=== PATIENT | female | born 1955 | race Caucasian/White ===

== ENCOUNTER 2023-04-23 13:01 | Outpatient (AMB) | payer OTHER, MEDICAID, SELFPAY ==
--- NOTE | 2023-04-23 13:04 | A.OFFVIS_ITS ---
Intake Vital Signs 04/23/23 13:09 Height 5 ft 0.25 in Weight 220 lb 8 oz BMI 42.7 BP 114/68 Blood Pressure Location Rt brachial Position Sitting Respiration 16 Pulse 65 Pulse Source Pulse Oximeter Pulse Oximetry (%) 96 Oxygen Delivery Method Room Air Intake Visit Reasons: E-HEALTH INFORMATION MANAGEMENT DIRECTOR: Tremors-CONF Intake Note: Pt presents for new pt evaluation for tremors. Screwhead Stoner And Polisher Required: No Allergies No Known Allergies Allergy (Verified 04/23/23 13:05) Medication List - Last Reconciled 04/23/23 by Faina Avelar MD acetaminophen 500 mg PO QID PRN atorvastatin 20 mg PO DAILY diclofenac sodium 1% (Arthritis Pain (diclofenac)) 2 grams topical QID ibuprofen 600 mg PO Q6H PRN propranolol 60 mg PO BID HPI HPI Comments History of Present Illness Details 67y/o right handed handed female comes f or evaluation of tremors. She started noticing tremors in her hands more than 5 years ago and for past 1 year she also has cramping in her hands and fingers.she has difficulty opening the water bottle, dressing , buttoning the shirt etc. The tremors are worse with action and position. she also has numbness and tingling in bilateral hands episodic in nature. she denies neck pain but has shoulder pain. 2 of her brothers have some finger cramp ing but no tremors. PFSH Medical History Cervicalgia Numbness and tingling in both hands Coarse tremors Obesity Hyperlipidemia Knee pain Gallstones Arthritis Surgical History H/O varicose vein stripping Hx of total knee replacement Social History Household Members: Other Housing: Apartment Are you a primary foster care worker to a significant other at home: Yes Alcohol intake: never Patient Tobacco Use Status: Never used Tobacco Use of substances other than those prescribed or required for medical reasons: No Physical Exam Vital Signs: Last Vital Signs Pulse 65 04/23/23 13:09 Resp 16 04/23/23 13:09 BP 114/68 04/23/23 13:09 Pulse Ox 96 04/23/23 13:09 Oxygen Delivery Method Room Air 04/23/23 13:09 BMI result Body Mass Index 42.7 Const General: cooperative, healthy appearing and comfortable Nutritional Appearance: obese Orientation/consciousness: patient oriented x3 Eyes Pupils: Equal, round and reactive pupils present Neuro Other: 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 of willis hand line camera operator Mild postural and action tremors tone normal General: patient oriented x3, gait normal, tone normal and moves all extremities Cranial nerves: Yes Equal, round and reactive pupils present, Yes Bilaterally intact EOM present, Yes Nystagmus not present, Yes Normal facial strength present and Yes Midline tongue present Cognition (Neuro): normal cognition Gait exam (Neuro): Antalgic gait present Motor exam (neuro): 5/5 motor strength present throughout and Normal motor muscle tone present throughout Deep tendon reflexes (DTR's): Right triceps reflex intensity grade: 1+, Left triceps reflex intensity grade: 1+, Rt Biceps (C5, C6): 1+, Left biceps reflex intensity grade: 1+, Right brachioradialis reflex intensity grade: 1+, Left brachioradialis reflex intensity grade: 1+, Right patellar reflex intensity grade: 1+ and Left patellar reflex intensity grade: 1+ Coordination: geznhg-[id number] test normal Psych Appearance: grossly normal Assessment & Plan Assessment & Plan (1) Coarse tremors: Comment: exaggerated physiological tremors vs essential tremors Code(s): G25.2 - Other specified forms of tremor (2) Numbness and tingling in both hands: Comment: ? carpal tunnel ? cervical radiculopathy Code(s): R20.0 - Anesthesia of skin; R20.2 - Paresthesia of skin (3) Cervicalgia: Code(s): M54.2 - Cervicalgia Plan C spine X ray - to evaluate for DJD PT - neck myofascial release OT - hand strengthening EMG NCS - UE to evaluate for carpal tunnel will hold off on medications for now Orders: Orders OT Evaluation and Treatment Today G25.2 - Other specified forms of tremor PT Evaluation and Treatment Today M54.2 - Cervicalgia XR cervical spine 3V Today M54.2 - Cervicalgia, R20.0 - Anesthesia of skin, R20.2 - Paresthesia of skin NE electromyogram (EMG) Today R20.0 - Anesthesia of skin, R20.2 - Paresthesia of skin NE nerve conduction velocity Today R20.0 - Anesthesia of skin, R20.2 - Paresthesia of skin Coding Level of Care Code New Pt Level 4 (61611) Diagnoses Coarse tremors G25.2 Numbness and tingling in both hands R20.0; R20.2 Cervicalgia M54.2
[2023-04-23 13:09] VITALS: BP 114/68; PULSE 65; RESP 16; O2SAT 96; BMI 42.7
== END 2023-04-23 13:49 | disposition home or self-care (01) ==
PROVIDERS: PCP Nurse Practitioner Family; Visit Provider Psychiatry & Neurology Neurology
DX: G25.2 Other specified forms of tremor (principal); R20.0 Anesthesia of skin; R20.2 Paresthesia of skin; M54.2 Cervicalgia
CPT/HCPCS: 99204

== ENCOUNTER → 2023-04-23 13:01 | Outpatient (BNVA) | payer OTHER, SELFPAY | PROVIDERS: PCP Nurse Practitioner Family; Visit Provider Psychiatry & Neurology Neurology ==

== ENCOUNTER 2024-05-29 13:00 | Outpatient (AMB) | payer MEDICAID, SELFPAY ==
--- NOTE | 2024-05-29 13:01 | MHC.OFFVIS ---
Vital Signs 05/29/24 13:10 Height 5 ft 1 in Weight 230 lb BMI 43.5 Pulse 58 Pulse Source Pulse Oximeter Pulse Oximetry (%) 99 Oxygen Delivery Method Room Air Intake Visit Reasons: Follow Up-# Not Working Intake Note: Patient presents for follow up per OF central scheduling unable to reach patient to book procedures ordered by provider Retail Merchandiser Technician Required: Yes Retail Merchandiser Technician Services: Retail Merchandiser Technician Present Retail Merchandiser Technician Name: Muna [id number] Information Interpreted: non-clinical & clinical Allergies No Known Allergies Allergy (Verified 05/29/24 13:11) Medication List - Last Reconciled 05/29/24 by Faina Avelar MD acetaminophen 500 mg PO QID PRN atorvastatin 20 mg PO DAILY diclofenac sodium 1% (Arthritis Pain (diclofenac)) 2 grams topical QID ibuprofen 600 mg PO Q6H PRN HPI Comments Details: 68y/o right handed handed female comes for follow up of tremors.No changes since last visit- she did not have X ray and no showed her EMG appointment. History from last visit-She started noticing tremors in her hands more than 5 years ago and for past 1 year she also has cramping in her hands and fingers.she has difficulty opening the water bottle, dressing , buttoning the shirt etc. The tremors are worse with action and position. she also has numbness and tingling in bilateral hands episodic in nature. she denies neck pain but has shoulder pain. 2 of her brothers have some finger cramping but no tremors. [facility] Medical History Cervicalgia Numbness and tingling in both hands Coarse tremors Obesity Hyperlipidemia Knee pain Gallstones Arthritis Surgical History H/O varicose vein stripping Hx of total knee replacement Social History Household Members: Other Housing: Apartment Are you a primary health and social care teacher to a significant other at home: Yes Alcohol intake: never Patient Tobacco Use Status: Never used Tobacco Physical Exam Const General: cooperative, healthy appearing and comfortable Nutritional Appearance: obese Orientation/consciousness: patient oriented x3 Eyes Pupils: Equal, round and reactive pupils present Neuro Other: 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 of 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 Mild postural and action tremors tone normal General: patient oriented x3, gait normal, tone normal and moves all extremities Cranial nerves: Yes Equal, round and reactive pupils present, Yes Bilaterally intact EOM present, Yes Nystagmus not present, Yes Normal facial strength present and Yes Midline tongue present Cognition (Neuro): normal cognition Gait exam (Neuro): Antalgic gait present Motor exam (neuro): 5/5 motor strength present throughout and Normal motor muscle tone present throughout Coordination: [id number]-tf-[id number] test normal Psych Appearance: grossly normal Assessment & Plan Assessment & Plan (1) Coarse tremors: Comment: exaggerated physiological tremors vs essential tremors Code(s): G25.2 - Other specified forms of tremor Category: Medical (2) Numbness and tingling in both hands: Comment: ? carpal tunnel ? cervical radiculopathy Code(s): R20.0 - Anesthesia of skin; R20.2 - Paresthesia of skin Category: Medical (3) Cervicalgia: Code(s): M54.2 - Cervicalgia Category: Medical Plan C spine X ray - to evaluate for DJD EMG NCS - UE to evaluate for carpal tunnel will hold off on medications for now A certified medical geneticist helped with todays vist Orders: Orders NE electromyogram (EMG) Today R20.0 - Anesthesia of skin, R20.2 - Paresthesia of skin XR cervical spine 2V Today M54.2 - Cervicalgia NE nerve conduction velocity Today R20.0 - Anesthesia of skin, R20.2 - Paresthesia of skin Coding Level of Care Code Est Pt Level 4 (72064) Diagnoses Coarse tremors G25.2 Numbness and tingling in both hands R20.0; R20.2 Cervicalgia M54.2
[2024-05-29 13:10] VITALS: PULSE 58; O2SAT 99; BMI 43.5
--- OUTSIDE RECORDS SUMMARY | 2024-05-29 15:19 | XMS_ITS | Clinical Summary ---
Author Organization [facility] Address [address] [place] [address] Care Team Providers Care Plate Stacker Name Role Phone Nga Torre CROSS TIE MAKER-Erica Primary Care Provider [phone] Source Comments PLEASE NOTE, if this patient is a minor, it may be UNLAWFUL to discuss sensitive information that is contained in these records (such as FAMILY PLANNING, MENTAL HEALTH or SUBSTANCE ABUSE) with the minor patient's parent or other person without the patient's specific authorization.[facility] Allergies No known active allergies Medications primidone (MYSOLINE) 50 mg tabletIndications: Essential tremor Take 0.5 Tablets by mouth nightly at bedtime 90 Tablet 4 Active atorvastatin (LIPITOR) 20 mg tabletIndications: Mixed hyperlipidemia Take 1 Tablet by mouth once daily 90 Tablet 1 5 Active diclofenac sodium (VOLTAREN) 1 % gelIndications:Art hritis,Chronic midline thoracic back pain,Chronic pain of left knee Apply topically 2 (two) times daily 100 g 1 5 Active ibuprofen 400 mg tabletIndications: Chronic midline thoracic back pain,Chronic pain of left knee Take 1 Tablet by mouth 3 (three) times daily as needed for pain 90 Tablet 5 Active Active Problems Problem Noted Date Diagnosed Date Colon cancer screening declined 10/18/2022 Essential tremor 10/18/2022 Mixed hyperlipidemia 03/08/2022 Primary osteoarthritis of both knees 07/25/2021 Calculus of gallbladder with out cholecystitis without obstruction 07/15/2021 Chronic pain of both knees 07/15/2021 Arthritis 07/15/2021 Class 3 severe obesity due t o excess calories with serious comorbidity and body mass index (BMI) of 45.0 to 49.9 in adult ([facility]) 07/15/2021 Encounters Date Type Department Care Team Description 04/03/2024 5:20 PM EST Telemedicine Visit [address] [id number] Nga Torre FNP-C Vasylyshyn, Oksana Primary osteoarthritis of both knees (Primary Dx); Essential tremor; Mixed hyperlipidemia; Arthritis; Chronic midline thoracic back pain; Chronic pain of left knee from Last 3 Months Immunizations Immunization Administration Dates Next Due AstraZeneca COVID-19 Vaccine 01/09/2021,08/05/19 21 PNEUMOCOCCAL CONJUGATE PCV 20 (Prevnar) 08/27/19 24 TDAP 08/27/2023 Family History Medical History Relation Name Comments Heart Problems Father Heart Problems Mother Relation Name Status Comments Father Mother Social History Tobacco Use Types Packs/Day Years Used Date Smoking Tobacco: Never Smokeless Tobacco: Never Alcohol Use Standard Drinks/Week Comments Not Currently 0 (1 standard drink = 0.6 oz pur e alcohol) Social Connections Answer Date Recorded Connectedness 0 10/19/2023 Financial Resource Strain Answer Date R ecorded Financial Resource Strain 0 2021 Stress Answer Date Recorded Stress 0 07/15/2021 Physical Activity Answer Date Recorded Physical Activity 0 07/15/2021 Food Insecurity Answer Date Recorded Food 0 11/01/2023 Transportation Needs Answer Date Record ed Transportation 0 07/15/2021 Housing Stability Answer Date Recorded Housing 0 07/15/2021 Safety and Environment Answer Date Nithin rded Safety 0 07/15/2021 Utilities Answer Date Recorded Utilities 0 07/15/2021 Employment Answer Date Recorded Stress 0 10/19/2023 Comments No Sex and Gender Information Value Date Recorded Sex Assigned at Female 07/15/2021 7:54 AM PDT Legal Sex Female 6:40 AM PDT Gender Identity Female 07/15/2021 7:54 AM PDT Sexual Orientation Straight 07/15/2021 7: 54 AM PDT Occupation Industry Job Start Date Job End Date 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 [employer] Not on file No t on file Not on file Last Filed Vital Signs Vital Sign Reading Time Taken Comments Blood Pressure 134/82 10/30/2023 9:41 AM EDT Pulse 60 10/30/2023 9:41 AM EDT Temperature 36.9 ??C (98.4 ??F) 10/30/2023 9:41 AM ED T Respiratory Rate 19 10/30/2023 9:41 AM EDT Oxygen Saturation 97% 10/30/2023 9:41 AM EDT Inhaled Oxygen Concentration - - Weight 99.8 kg (220 lb) 10/30/2023 9:41 AM EDT Height 154.9 cm (5' 1 ) 10/30/2023 9:41 AM EDT Body Mass Index 41.57 10/30/2023 9:41 AM EDT Plan of Treatment Health Maintenance Due Date Last Done Comments Breast Cancer Screening (Mammogram) 1994 CT Colonography 08/04/1999 Colonoscopy 08/04/1999 FIT/gFOBT 08/04/1999 Fecal DNA 08/04/1999 Flexible Sigmoidoscopy 08/04/1999 Bone Density Screening 08/04/2019 [id number] ( season) 2023 08/27/2023, 01/09/2021, 08/04/2020 Tobacco Screening 07/12/2024 07/13/2023, , 07/15/2021 Annual Preventive Care Visit 10/29/2024, 10/18/2022, 10/14/2021, Additional history exists Falls Prevention 10/29/2024 10/30/2023, , 03/08/2022 Hypertension Screening (#1) 10/29/2024 Lipid Screening 10/29/2024 10/30/2023, 02/0 02/2022, 10/18/2021, Additional history exists Diabetes Screening 10/29/2026 10/30/2023, 0 10/30/2023, 03/08/2022, Additional history exists Hepatitis C Screening Completed 07/15/2021 Imm-DTaP/Tdap/Td Discontinued 08/27/2023 Imm-Pneumococcal 65+ Discontinued 08/27/2023 Alcohol and Drug Screen Completed 04/03/19, 10/30/2023, 03/08/2022, Additional history exists Depression Annual Screen Completed 04/03/2024 Colorectal Cancer Screening Discontinued Imm-Influenza Discontinued Imm-Zoster, Recombinant Discontinued Procedures Procedure Name Priority Date/Time Associated Diagnosis Comments HEMOGLOBIN GLYCOSYLATED A1C Routine 10/30/2023 10:25 AM EDT Routine general medical examination at a health care facility LIPID PANEL Routine 10/30/2023 10:25 AM EDT Routine general medical examination at a health care facility HEPATITIS C AB W/RFLX HCV RNA, QT, RT PCR Routine 07/15/2021 2:27 PM EDT Venereal disease screening from Last 3 Months or Most Recently Relevant to Health Maintenance Results * HEMOGLOBIN GLYCOSYLATED A1C (10/30/2023 10:25 AM EDT) HEMOGLOBIN A1C 5.6 <5.7 % of total Hgb [facility] Comment: For the purpose of screening for the presence of diabetes: <5.7% ? Consistent with the absence of diabetes 5.7-6.4% ?Consistent with increased risk for diabetes ?(prediabetes) > or =6.5% ??Consistent with diabetes This assay result is consistent with a decreased risk of diabetes. Currently, no consensus exists regarding use of hemoglobin A1c for diagnosis of diabetes in children. According to [place] Diabetes Association (ADA) guidelines, hemoglobin A1c <7.0% represents optimal control in non- diabetic patients. Different metrics may apply to specific patient populations. Standards of Medical Care in Diabetes(ADA). ?? Blood Blood / Unknown 10/30/2023 1 0:25 AM EDT 10/30/2023 10:26 AM EDT Narrative [facility] - 10/31/2023 3:03 PM EDT FASTING:NO us Nga Torre CROSS TIE MAKER-C LAB - BLOOD DRAW Edited R esult - Final [facility] [address] [place] [address], [facility] [address] [place] [address] * (ABNORMAL) LIPID PANEL (10/30/2023 10:25 AM EDT) CHOLESTEROL, TOTAL 201(H) <200 mg/dL [facility] HDL CHOLESTEROL 35(L) > OR = 50 mg/dL [facility] TRIGLYCERIDES 133 <150 mg/dL [facility] LDL-CHOLESTEROL 140(H) 99 mg/dL (calc) [facility] Comment: Reference range: <100 Desirable range <100 mg/dL for primary prevention; ?? <70 mg/dL for patients with CHD or diabetic patients with > or = 2 CHD risk factors. LDL-C is now calculated using the Valery calculation, which is a validated novel method providing better accuracy than the Friedewald equation in the estimation of LDL-C. [place] AGUIRRE et al. SHIRLEY. 2013;310(19): 1757-7542 (http://education.Espion Limited/faq/NTR805) CHOL/HDLC RATIO 5.7(H) <5.0 (calc) [facility] NON-HDL CHOLESTEROL 166(H) <130 mg/dL (calc) [facility] Comment: For patients with diabetes plus 1 major ASCVD risk factor, treating to a non-HDL-C goal of <100 mg/dL (LDL-C of <70 mg/dL) is considered a therapeutic option. Blood Blood / Unknown 10/30/2023 1 0:25 AM EDT 10/30/2023 10:26 AM EDT Narrative [facility] - 10/31/2023 3:03 PM EDT FASTING:NO Nga Torre CROSS TIE MAKER-C LAB - BLOOD DRAW Final Re sult [facility] [address] [place] [address], [facility] [address] [address] * HEPATITIS C AB W/RFLX HCV RNA, QT, RT PCR (07/15/2021 2:27 PM EDT) HEPATITIS C ANTIBODY NON-REACT BELGICA NON-REACT BELGICA [facility] SIGNAL TO CUT-OFF 0.03 <1.00 [facility] Comment: HCV antibody was non-reactive. There is no laboratory evidence of HCV infection. In most cases, no further action is required. However, if recent HCV exposure is suspected, a test for HCV RNA (test code 28951) is suggested. For additional information please refer to http://education.[employer]/faq/WRO58i4 (This link is being provided for informational/ educational purposes only.) Blood Blood / Unknown 07/15/2021 2 :27 PM EDT 07/15/2021 2:27 PM EDT Amanda Hammonds CROSS TIE MAKER-C LAB - BLOOD DRAW Edited Result - Final [facility] [place] [facility] [address] [address], [facility] [address] [address] from Last 3 Months or Most Recently Relevant to Health Maintenance Insurance [place] MEDICAID Care Teams Plate Stacker Relationship Specialty Start Date End Date Nga Torre FNP-C [address] [place] [address] PCP - General Internal Medicine 02/14/23
== END 2024-05-29 13:40 | disposition home or self-care (01) ==
PROVIDERS: PCP Nurse Practitioner Family; Visit Provider Psychiatry & Neurology Neurology
DX: G25.2 Other specified forms of tremor (principal); R20.0 Anesthesia of skin; R20.2 Paresthesia of skin; M54.2 Cervicalgia
CPT/HCPCS: 99214

== ENCOUNTER → 2024-05-29 13:00 | Outpatient (BNVA) | payer OTHER, MEDICAID, SELFPAY | PROVIDERS: PCP Nurse Practitioner Family; Visit Provider Psychiatry & Neurology Neurology | DX: G25.2 Other specified forms of tremor (principal); R20.0 Anesthesia of skin; R20.2 Paresthesia of skin; M54.2 Cervicalgia | CPT/HCPCS: 99212 ==

== ENCOUNTER 2024-07-15 10:29 | Outpatient (REF) | payer MEDICAID, SELFPAY ==
--- NOTE | 2024-07-15 10:35 | EMG_ITS ---
FINDINGS: Bilateral median and ulnar motor and sensory studies were performed. Bilateral radial sensory studies were performed and paraspinal muscles were tested with a needle. 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 MD CARO Fisher/AIDAN / [id number]
--- OUTSIDE RECORDS SUMMARY | 2024-07-15 12:12 | XMS_ITS | Clinical Summary ---
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 Consistent with the absence of diabetes 5.7-6.4% ?Consistent with increased risk for diabetes ?(prediabetes) > or =6.5% ??Consistent with diabetes This assay result is consistent with a decreased risk of diabetes. Currently, no consensus exists regarding use of hemoglobin A1c for diagnosis of diabetes in children. According to [place] Diabetes Association (ADA) guidelines, hemoglobin A1c <7.0% represents optimal control in non- diabetic patients. Different metrics may apply to specific patient populations. Standards of Medical Care in Diabetes(ADA). ?? Blood Blood / Unknown 10/30/2023 1 0:25 AM EDT 10/30/2023 10:26 AM EDT Narrative [facility] - 10/31/2023 3:03 PM EDT FASTING:NO Nga Torre ESCALATION ENGINEER-C LAB - BLOOD DRAW Edited R esult - Final [facility] [address] [place] [address], [facility] [address] [address] * (ABNORMAL) LIPID PANEL (10/30/2023 10:25 AM EDT) CHOLESTEROL, TOTAL 201(H) <200 mg/dL [facility] HDL CHOLESTEROL 35(L) > OR = 50 mg/dL [facility] TRIGLYCERIDES 133 <150 mg/dL [facility] LDL-CHOLESTEROL 140(H) 99 mg/dL (calc) [facility] Comment: Reference range: <100 Desirable range <100 mg/dL for primary prevention; ?? <70 mg/dL for patients with CHD or diabetic patients with > or = 2 CHD risk factors. LDL-C is now calculated using the Valery calculation, which is a validated novel method providing better accuracy than the Friedewald equation in the estimation of LDL-C. [place] AGUIRRE et al. SHIRLEY. 2013;310(19): 2188-9387 (http://Twitt2go.SIPX/faq/ZMI979) CHOL/HDLC RATIO 5.7(H) <5.0 (calc) [facility] NON-HDL CHOLESTEROL 166(H) <130 mg/dL (calc) [facility] Comment: For patients with diabetes plus 1 major ASCVD risk factor, treating to a non-HDL-C goal of <100 mg/dL (LDL-C of <70 mg/dL) is considered a therapeutic option. Blood Blood / Unknown 10/30/2023 1 0:25 AM EDT 10/30/2023 10:26 AM EDT Narrative [facility] - 10/31/2023 3:03 PM EDT FASTING:NO Nga Torre ESCALATION ENGINEER-C LAB - BLOOD DRAW Final Re sult [facility] [address] [place] [address], [facility] [address] [place] [phone] * HEPATITIS C AB W/RFLX HCV RNA, QT, RT PCR (07/15/2021 2:27 PM EDT) HEPATITIS C ANTIBODY NON-REACT BELGICA NON-REACT BELGICA [facility] SIGNAL TO CUT-OFF 0.03 <1.00 [facility] Comment: HCV antibody was non-reactive. There is no laboratory evidence of HCV infection. In most cases, no further action is required. However, if recent HCV exposure is suspected, a test for HCV RNA (test code 45291) is suggested. For additional information please refer to http://Twitt2go.QponDirect/faq/MAL12q6 (This link is being provided for informational/ educational purposes only.) Blood Blood / Unknown 07/15/2021 2 :27 PM EDT 07/15/2021 2:27 PM EDT us Amanda Hammonds ESCALATION ENGINEER-C LAB - BLOOD DRAW Edited Result - Final [facility] [address] [address], [facility] [address] [address] from Last 3 Months or Most Recently Relevant to Health Maintenance Insurance [place] MEDICAID Care Teams Terrazzo Installer Relationship Specialty Start Date End Date Nga Torre FNP-C [address] [place] [address] PCP - General Internal Medicine 02/14/23
== END 2024-07-15 10:30 | disposition home or self-care (01) ==
LOC: HO.NEURO 10:29
PROVIDERS: Visit Provider Psychiatry & Neurology Neurology
DX: R20.2 Paresthesia of skin (principal); R20.0 Anesthesia of skin
CPT/HCPCS: 95886; 95911

== ENCOUNTER 2024-08-25 11:11 | Outpatient (AMB) | payer MEDICAID, SELFPAY ==
[2024-08-25 11:16] VITALS: PULSE 58; O2SAT 96; BMI 43.1
--- NOTE | 2024-08-25 11:16 | MHC.OFFVIS ---
Vital Signs 08/25/24 11:16 Height 5 ft 1 in Weight 228 lb BMI 43.1 Pulse 58 Pulse Source Pulse Oximeter Pulse Oximetry (%) 96 Oxygen Delivery Method Room Air Intake Visit Reasons: 3 mo follow up Intake Note: Patient presents follow up Tremor. EMG in chart. Soldering Machine Setter Required: Yes Soldering Machine Setter Language: Albanian Soldering Machine Setter Services: Soldering Machine Setter Present Soldering Machine Setter Name: Jalen [id number] Information Interpreted: non-clinical & clinical Accompanied by: Daughter Allergies No Known Allergies Allergy (Verified 08/25/24 11:22) HPI Comments Details: 69 y/o right handed handed female comes for follow up of tremors. Daughter Danyell is here with her. 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 She is sleeping well when she is not in pain, she takes ibuprofen 600mg po prn pain. She goes to bed at 9pm and wakes up at 6am with 2 bathroom breaks. She denies bruxism, migraines, denies RLS symptoms. She has bilateral knee pain due to arthritis, however improved due to bilateral TKR 2 years ago. Tremors are present, constant and get worse when she goes to reach for an item and improves with rest. She is independent in all ADLs. has difficulty going down the stairs more than up. She uses a cane at home, and a rolling walker outside in the park. She denies any falls. Memory is stable. Her mood is stable. Denies family history of movement disorders and or Parkinsons. History from last visit-She started noticing tremors in her hands more than 5 years ago and for past 1 year she also has cramping in her hands and fingers.she has difficulty opening the water bottle, dressing , buttoning the shirt etc. The tremors are worse with action and position. She also has numbness and tingling in bilateral hands episodic in nature. she denies neck pain but has shoulder pain. 2 of her brothers have some finger cramping but no tremors. 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 to a significant other at home: Yes Alcohol intake: never Patient Tobacco Use Status: Never used Tobacco Physical Exam Vital Signs: Last Vital Signs Pulse 58 08/25/24 11:16 Pulse Ox 96 08/25/24 11:16 Oxygen Delivery Method Room Air 08/25/24 11:16 BMI result Body Mass Index 43.1 Const General: cooperative, healthy appearing and comfortable Nutritional Appearance: obese Orientation/consciousness: patient oriented x3 Eyes Pupils: Equal, round and reactive pupils present Neuro Other: 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 of willis hand precision agronomist Mild postural and action tremors tone normal General: patient oriented x3, gait normal, tone normal and moves all extremities Cranial nerves: Yes Equal, round and reactive pupils present, Yes Bilaterally intact EOM present, Yes Nystagmus not present, Yes Normal facial strength present and Yes Midline tongue present Cognition (Neuro): normal cognition Gait exam (Neuro): Antalgic gait present Motor exam (neuro): 5/5 motor strength present throughout and Normal motor muscle tone present throughout Coordination: ipbuia-kg-ircn test normal Psych Appearance: grossly normal Results Reviewed Results Reviewed: 07/2024 FINDINGS: EMG/NCS Bilateral median and ulnar motor and sensory studies were performed. Bilateral radial sensory studies were performed and paraspinal muscles were tested with a needle. 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 Assessment & Plan Assessment & Plan (1) Numbness and tingling in both hands: Comment: ? carpal tunnel ? cervical radiculopathy Code(s): R20.0 - Anesthesia of skin; R20.2 - Paresthesia of skin Category: Medical (2) Cervicalgia: Comment: will monitor Code(s): M54.2 - Cervicalgia Category: Medical (3) Coarse tremors: Comment: exaggerated physiological tremors vs essential tremors Code(s): G25.2 - Other specified forms of tremor Category: Medical Plan EMG NCS - UE to evaluate for carpal tunnel syndrome with ulnar and median neuropathy. Writst braces DME- start gabapentin 200mg po daily at bedtime. PT for hand weakness and pain. CT? MRI for DJD Orders: Orders PT Evaluation and Treatment Today M54.2 - Cervicalgia, R20.0 - Anesthesia of skin, R20.2 - Paresthesia of skin Medications: New gabapentin 200 mg (2 x 100 mg) PO BEDTIME 180 caps 0RF cervical pain 3 months MDD 200mg po at night G25.2 - Other specified forms of tremor, R20.0 - Anesthesia of skin, R20.2 - Paresthesia of skin Patient Instructions: Sleep Hygiene provided: set a scheduled bedtime and wake time to help regulate the circadian rhythm and balance the release of pituitary hormones. Sleep in a dark room, temperatures below 68 degrees, and no devices n bed. Limit caffeinated products 6 hours prior to bed, and limit fluids 2-4 hours prior to bed. Gentle night yoga, diffusing essential oils, and playing soft music can be relaxing. Coding Level of Care Code Est Pt Level 4 (05625) Diagnoses Numbness and tingling in both hands R20.0; R20.2 Cervicalgia M54.2 Coarse tremors G25.2 Time Spent (min) 25 Comment evaluation tremors
--- OUTSIDE RECORDS SUMMARY | 2024-08-25 12:20 | XMS_ITS | Clinical Summary ---
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 [employer] Not on file No t on file Not on file Last Filed Vital Signs Vital Sign Reading Time Taken Comments Blood Pressure 134/82 10/30/2023 9:41 AM EDT Pulse 60 10/30/2023 9:41 AM EDT Temperature 36.9 C (98.4 F) 10/30/2023 9:41 AM EDT Respiratory Rate 19 10/30/2023 9:41 AM EDT [...] Flexible Sigmoidoscopy 08/04/1999 Bone Density Screening 08/04/2019 [id number] ( season) 2023 08/27/2023, 01/09/2021, 08/04/2020 Annual Wellness (Adult): Indicated (All Coverage) 10/29/2024 10/30/2023, 10/18/2022, 10/14/2021, Additional history exists Falls Prevention 10/29/2024 10/30/2023, , 03/08/2022 Hypertension Screening (#1) 10/29/2024 Lipid Screening 10/29/2024 10/30/2023, 02/0 02/2022, 10/18/2021, Additional history exists Tobacco Screening 04/03/2025 04/03/2024, , 07/15/2021 Diabetes Screening 10/29/2026 10/30/2023, 0 10/30/2023, 03/08/2022, Additional history exists Hepatitis C Screening Completed 07/15/2021 Imm-DTaP/Tdap/Td Discontinued 08/27/2023 Imm-Pneumococcal 50+ Discontinued 08/27/2023 Alcohol and Drug Screen Completed [...] HEMOGLOBIN GLYCOSYLATED A1C (10/30/2023 10:25 AM EDT) Pathologist [facility] HEMOGLOBIN A1C 5.6 <5.7 % of total Hgb [facility] Comment: For the purpose of screening for the presence of diabetes: <5.7% Consistent with the absence of diabetes 5.7-6.4% Consistent with increased risk for diabetes (prediabetes) > or =6.5% Consistent with diabetes This assay result is consistent with a decreased risk of diabetes. Currently, no consensus exists regarding use of hemoglobin A1c for diagnosis of diabetes in children. According to [place] Diabetes Association (ADA) guidelines, hemoglobin A1c <7.0% represents optimal control in non- diabetic patients. Different metrics may apply to specific patient populations. Standards of Medical Care in Diabetes(ADA). Blood Blood / Unknown 10/30/2023 1 0:25 AM EDT 10/30/2023 10:26 AM EDT Narrative [facility] - 10/31/2023 3:03 PM EDT FASTING:NO Nga Torre HAND WEAVER-C LAB - BLOOD DRAW Edited R marin - Final [facility] [address] [place] [id number], [facility] [address] [place] [phone] * (ABNORMAL) LIPID PANEL (10/30/2023 10:25 AM EDT) [facility] CHOLESTEROL, TOTAL 201(H) <200 mg/dL [facility] HDL CHOLESTEROL 35(L) > OR = 50 mg/dL [facility] TRIGLYCERIDES 133 <150 mg/dL [facility] LDL-CHOLESTEROL 140(H) 99 mg/dL (calc) [facility] Comment: Reference range: <100 Desirable range <100 mg/dL for primary prevention; <70 mg/dL for patients with CHD or diabetic patients with > or = 2 CHD risk factors. LDL-C is now calculated using the Michoacano-Ramirez calculation, which is a validated novel method providing better accuracy than the Friedewald equation in the estimation of LDL-C. Michoacano SS et al. SHIRLEY. 2013;310(19): 2642-3917 (http://education.1,2,3 Listo/faq/UUX238) CHOL/HDLC RATIO 5.7(H) <5.0 (calc) [facility] NON-HDL CHOLESTEROL 166(H) <130 mg/dL (calc) [facility] Comment: For patients with diabetes plus 1 major ASCVD risk factor, treating to a non-HDL-C goal of <100 mg/dL (LDL-C of <70 mg/dL) is considered a therapeutic option. Blood Blood / Unknown 10/30/2023 1 0:25 AM EDT 10/30/2023 10:26 AM EDT Narrative [facility] - 10/31/2023 3:03 PM EDT FASTING:NO Nga Torre HAND WEAVER-C LAB - BLOOD DRAW Final Re sult [facility] [address] [id number], [facility] [address] [place] [phone] * HEPATITIS C AB W/RFLX HCV RNA, QT, RT PCR (07/15/2021 2:27 PM EDT) HEPATITIS C ANTIBODY NON-REACT BELGICA NON-REACT BELGICA [facility] SIGNAL TO CUT-OFF 0.03 <1.00 [facility] Comment: HCV antibody was non-reactive. There is no laboratory evidence of HCV infection. In most cases, no further action is required. However, if recent HCV exposure is suspected, a test for HCV RNA (test code 77656) is suggested. For additional information please refer to http://education.NextGen Platform/faq/TNO51u2 (This link is being provided for informational/ educational purposes only.) Blood Blood / Unknown 07/15/2021 2 :27 PM EDT 07/15/2021 2:27 PM EDT Amanda Hammonds HAND WEAVER-C LAB - BLOOD DRAW Edited Result - Final [facility] [address] [facility] [address] [place] [address], [facility] [address] [facility] [address] [address] from Last 3 Months or Most Recently Relevant to Health Maintenance Insurance [place] MEDICA[place] Care Teams Promotional Marketing Agent Relationship Specialty Start Date End Date Nga Torre FNP-C [address] [place] [address] PCP - General Internal Medicine 02/14/23
== END 2024-08-25 13:20 | disposition home or self-care (01) ==
LOC: HO.HSMS 11:11
PROVIDERS: PCP Nurse Practitioner Family; Visit Provider Physician Assistant Medical
DX: R20.0 Anesthesia of skin (principal); R20.2 Paresthesia of skin; M54.2 Cervicalgia; G25.2 Other specified forms of tremor
CPT/HCPCS: 99214

== ENCOUNTER → 2024-08-25 11:11 | Outpatient (BNVA) | payer MEDICAID, SELFPAY | PROVIDERS: PCP Nurse Practitioner Family; Visit Provider Physician Assistant Medical | DX: M54.2 Cervicalgia (principal); R20.0 Anesthesia of skin; R20.2 Paresthesia of skin; G25.2 Other specified forms of tremor | CPT/HCPCS: 99212 ==